=== PATIENT | male | born 1985 | race Caucasian/White ===

== ENCOUNTER → 2017-05-08 | Outpatient (CLI) | payer BC, OTHER ==
--- NOTE | 2017-05-08 12:33 | DIAGNOSTIC IMAGING REPORT ---
KUB HISTORY: Follow-up study in a patient with bilateral nephrolithiasis N20.0 [id number] COMPARISON: Renal ultrasound of same day. No additional studies are available at time of dictation. FINDINGS: The bowel gas pattern is non-obstructive. There is no organomegaly. Right renal shadow is partially obscured by bowel gas. Radiodensities project over the bilateral superior poles of the kidneys measuring up to 2 mm. Additional radiodensities projecting over the interpolar and lower pole left kidney are seen measuring up to 3 mm. No ureteral calculi identified. Probable phleboliths of the left hemipelvis. No pneumoperitoneum or pneumatosis. No fracture. IMPRESSION: Radiodensities projecting over the bilateral kidneys, left greater than right measuring up to 3 mm suggest nephrolithiasis. No ureteral calculi identified. Electronically signed by: Sbeastian Madera M.D. 05/08/2017 12:32 PM Dictated Date/Time: 05/08/2017 12:29 PM
--- NOTE | 2017-05-08 16:16 | DIAGNOSTIC IMAGING REPORT ---
RENAL ULTRASOUND HISTORY: N20.0 Nephrolithiasis [id number] COMPARISON: None. FINDINGS: Right kidney: 10.3 cm. No hydronephrosis. Normal corticomedullary differentiation and cortical thickness. A 4 mm stone within the lower pole. Left kidney: 11.1 cm. No hydronephrosis. Normal corticomedullary differentiation and cortical thickness. A few stones with the largest measuring 7 mm. Bladder: No bladder wall thickening. The bilateral ureteral jets were identified. IMPRESSION: Bilateral nephrolithiasis. No hydronephrosis. Electronically signed by: Hesham Gallardo M.D. 05/08/2017 4:14 PM Dictated Date/Time: 05/08/2017 12:06 PM
== END | disposition home or self-care (01) ==
LOC: C.ULTR 11:43
PROVIDERS: ATTEND Urology
DX: N20.0 Calculus of kidney (principal)

== ENCOUNTER → 2018-02-11 | Outpatient (CLI) | payer OTHER ==
--- NOTE | 2018-02-11 16:01 | DIAGNOSTIC IMAGING REPORT ---
KUB CLINICAL HISTORY: 32 years-old Male presenting with NEPHROLITHIASIS. TECHNIQUE: Single supine view of the abdomen was obtained. COMPARISON: 05/08/2017. FINDINGS: Nonobstructive bowel gas pattern. No gross pneumoperitoneum. Bilateral nephrolithiasis. No radiographic evidence of worsening of stone burden. No radiographic evidence of ureteral calculi. Stable distribution of pelvic phleboliths. Osseous structures normal. Lung bases clear. IMPRESSION: 1. Bilateral nephrolithiasis with unchanged stone burden. No radiographic evidence of ureteral calculi. Electronically signed by: Edward Bro M.D. 02/11/2018 4:00 PM Dictated Date/Time: 02/11/2018 3:58 PM
--- NOTE | 2018-02-11 17:10 | DIAGNOSTIC IMAGING REPORT ---
RENAL ULTRASOUND CLINICAL HISTORY: Nephrolithiasis. COMPARISON STUDY: Renal ultrasound May 08, 2017 and KUB February 11, 2018. TECHNIQUE: Sonography of the kidneys and the urinary bladder was performed. FINDINGS: There is no hydronephrosis. The right right kidney measures 10.5 cm in maximal dimension and the left measures 11.5 cm. Renal echogenicity, size and cortical thickness are normal. A few left renal calculi measure up to 5 mm. Right renal calculi shown on KUB are not evident on this exam, likely due to technique. A 5 mm echogenic lesion within the cortex of the lower pole of the right kidney favors a tiny angiomyolipoma. Both ureteral jets were identified IMPRESSION: 1. No hydronephrosis. 2. Left-sided nephrolithiasis. Right renal calculi shown on KUB not evident on this exam, likely due to technique. 3. 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 Electronically signed by: Jamie Berry M.D. 02/11/2018 5:09 PM Dictated Date/Time: 02/11/2018 5:06 PM
== END | disposition home or self-care (01) ==
LOC: C.ULTR 15:41
PROVIDERS: ATTEND Urology
DX: N20.0 Calculus of kidney (principal); N28.9 Disorder of kidney and ureter, unspecified